=== PATIENT | male | born 1965 | race Caucasian/White ===

== ENCOUNTER 2016-11-01 21:35 | Emergency (ER) | payer MEDICARE, OTHER ==
[2016-11-01 21:43] VITALS: BP 158/82
--- NOTE | 2016-11-01 21:48 | UC ---
Respiratory Complaint HPI - HPI Summary HPI Summary: The patient comes in today for: 1. Sinus pressure: Onset: "a couple days." Palliative/Provocative: Staying out of the cold helps. Quality: Pressure. Region: Frontal and maxillary sinuses Severity: 3/10 Time: Constant. Associated symptoms: Rhinitis: "Not much out." Cough: None. Fever: None. Upper tooth pain: None. * - History of Current Complaint Stated Complaint: LEFT EAR, SINUSES Time Seen by Provider: 11/01/16 21:36 Hx Obtained From: Patient - Allergies/Home Medications Allergies/Adverse Reactions: Allergies Allergy/AdvReac Type Severity Reaction Status Date / Time No Known Allergies Allergy Verified 11/01/16 21:43 PMH/Surg Hx/FS Hx/Imm Hx Previously Healthy: No - Back pain. Endocrine History Of: Reports: Dyslipidemia Denies: Diabetes, Thyroid Disease, Hyperthyroidism, Hypothyroidism Cardiovascular History Of: Reports: Cardiac Disorders - pace maker/difbrillator after "Massive heart attack.", Hypertension, Pacemaker/ICD, Myocardial Infarction Denies: Congestive Heart Failure, Atrial Fibrillation, Deep Vein Thrombosis, Bleeding Disorders Respiratory History Of: Denies: COPD, Asthma, Bronchitis, Pneumonia, Pulmonary Embolism GI/ History Of: Reports: Gastroesophageal Reflux Denies: Ulcer, Gastrointestinal Bleed, Gall Bladder Disease, Kidney Stones, Diverticulitis, Renal Disease, Urosepsis Neurological History Of: Denies: TIA, CVA, Dementia, Seizures, Migraine Psychological History Of: Denies: Anxiety, Depression, Bipolar Disorder, Schizophrenia, Post Traumatic Stress Disorder Cancer History Of: Denies: Lung Cancer, Colorectal Cancer, Breast Cancer, Prostate Cancer, Cervical Cancer Other History Of: Anticoagulant Therapy - 325 mg aspirin daily. Negative For: HIV, Hepatitis B, Hepatitis C - Surgical History Surgical History: Yes Surgery Procedure, Year, and Place: steel rods in back and neCK. PACE MAKER PLACED 2006. REPLACEMENT PACER--09/2014 - Social History Alcohol Use: Rare Substance Use Type: None Smoking Status (MU): Former Smoker Type: Cigarettes Length of Time of Smoking/Using Tobacco: 2 YEARS Have You Smoked in the Last Year: No When Did the Patient Quit Smoking/Using Tobacco: 2011 - Immunization History Most Recent Influenza Vaccination: FALL 2014 Review of Systems Constitutional: Negative Skin: Negative Eyes: Negative ENT: Negative Respiratory: Negative Cardiovascular: Negative Gastrointestinal: Negative All Other Systems Reviewed And Are Negative: Yes Physical Exam Triage Information Reviewed: Yes Appearance: Well-Appearing, No Pain Distress, Well-Nourished Vital Signs Reviewed: Yes Eyes: Positive: Conjunctiva Clear, Discharge ENT: Positive: Hearing grossly normal. Negative: Nasal congestion, Nasal drainage - Right ear: TM katz and translucent with no canal erythema. Left ear: Cerumen impaction:, Tonsillar swelling, Tonsillar exudate Dental: Negative: Gross Decay/Caries @, Dental Fracture @ Neck: Positive: Supple, Nontender, No Lymphadenopathy. Negative: Nuchal Rigidity Respiratory: Positive: Chest non-tender, Lungs clear, No respiratory distress, No accessory muscle use. Negative: Crackles, Stridor, Wheezing Cardiovascular: Positive: RRR, No Murmur Abdomen Description: Positive: Nontender, No Organomegaly, Soft. Negative: Distended, Guarding Musculoskeletal: Positive: Strength Intact, ROM Intact, No Edema Neurological: Positive: Alert, Muscle Tone Normal Psychological: Positive: Age Appropriate Behavior, Consolable Skin: Negative: rashes, breakdown Respiratory Course/Dx - Differential Dx/Diagnosis Differential Diagnosis/HQI/PQRI: Asthma, Bronchitis, Laryngitis, Sinusitis Provider Diagnoses: Sinusitis Discharge - Discharge Plan Condition: Stable Disposition: HOME Patient Education Materials: Sinusitis (ED) Referrals: Jigar Garcia MD [Primary Care Provider] - 1 Week
[2016-11-01] MEDS ORDERED: Amoxicillin/Clavulanate TAB* 875 MG PO ONE (21:54)
== END 2016-11-01 22:02 | disposition home or self-care (01) ==
LOC: UCCORT 21:35
DX: J32.9 Chronic sinusitis, unspecified (principal); Z95.0 Presence of cardiac pacemaker; Z87.891 Personal history of nicotine dependence
CPT/HCPCS: 99212; A9270-GY; G0463

== ENCOUNTER 2017-07-17 09:19 | Emergency (ER) | payer MEDICARE, OTHER ==
--- NOTE | 2017-07-17 09:33 | UC ---
Throat Pain/Nasal Hubert HPI - HPI Summary HPI Summary: nasal congestion and pressure for three days. hot showers have not helped. no fever. - History of Current Complaint Stated Complaint: SINUS Time Seen by Provider: 07/17/17 09:26 Hx Obtained From: Patient Onset/Duration: Gradual Onset Severity: Moderate Cough: Nonproductive Associated Signs & Symptoms: Positive: Sinus Discomfort, Nasal Discharge. Negative: Hoarseness, Fever, Vomiting, Rash - Epiglottits Risk Factors Epiglottis Risk Factors: Negative - Allergies/Home Medications Allergies/Adverse Reactions: Allergies Allergy/AdvReac Type Severity Reaction Status Date / Time No Known Allergies Allergy Verified 11/01/16 21:43 PMH/Surg Hx/FS Hx/Imm Hx Previously Healthy: No - heart disease. Other History Of: Anticoagulant Therapy - 325 mg aspirin daily. Negative For: HIV, Hepatitis B, Hepatitis C - Surgical History Surgical History: Yes Surgery Procedure, Year, and Place: steel rods in back and neCK. PACE MAKER PLACED 2006. REPLACEMENT PACER--09/2014 - Family History Known Family History: Positive: Other - no related sinus disease. - Social History Alcohol Use: Rare Substance Use Type: None Smoking Status (MU): Former Smoker Type: Cigarettes Amount Used/How Often: 1-2 ppd Length of Time of Smoking/Using Tobacco: 2 YEARS Have You Smoked in the Last Year: No When Did the Patient Quit Smoking/Using Tobacco: 2011 - Immunization History Most Recent Influenza Vaccination: FALL 2014 Review of Systems ENT: Nasal Discharge, Sinus Congestion, Sinus Pain/Tenderness All Other Systems Reviewed And Are Negative: Yes Physical Exam Triage Information Reviewed: Yes Appearance: Well-Appearing, No Pain Distress, Well-Nourished Vital Signs Reviewed: Yes Eye Exam: Normal ENT Exam: Other - devora sinus tenderness mild. ENT: Positive: Pharynx normal, Nasal congestion, TMs normal. Negative: Pharyngeal erythema, Nasal drainage, Tonsillar swelling, Tonsillar exudate, Trismus Neck exam: Normal Neck: Positive: Supple, Nontender, No Lymphadenopathy Respiratory Exam: Normal Cardiovascular Exam: Normal Abdominal Exam: Normal Musculoskeletal Exam: Normal Neurological Exam: Normal Psychological Exam: Normal Skin Exam: Normal Throat Pain/Nasal Course/Dx - Differential Dx/Diagnosis Differential Diagnosis/HQI/PQRI: Influenza, Laryngitis, Mononucleosis, Otitis Media, Peritonsillar Abscess, Pharyngitis, Tonsillitis, URI Provider Diagnoses: uri. sinusitis. Discharge - Discharge Plan Condition: Good Disposition: HOME Prescriptions: Amoxicillin PO (*) [Amoxicillin 500 MG CAP*] 500 mg PO TID #30 cap Patient Education Materials: Rhinosinusitis (ED), Upper Respiratory Infection ( ED) Referrals: Jigar Garcia MD [Primary Care Provider] - If Needed
[2017-07-17 09:42] VITALS: BP 118/76
== END 2017-07-17 09:50 | disposition home or self-care (01) ==
LOC: UCCORT 09:19
DX: J06.9 Acute upper respiratory infection, unspecified (principal); J32.9 Chronic sinusitis, unspecified; Z95.0 Presence of cardiac pacemaker; Z79.82 Long term (current) use of aspirin; Z87.891 Personal history of nicotine dependence
CPT/HCPCS: 99212; G0463

== ENCOUNTER 2017-12-31 21:10 | Emergency (ER) | payer MEDICARE, OTHER ==
[2017-12-31 21:24] VITALS: BP 133/83
--- NOTE | 2017-12-31 21:40 | ED ---
Throat Pain/Nasal Congestion - HPI Summary HPI Summary: Sinus pressure nad pain and mild sore throat and PND for 2 days. Mild cough. No fever. Tried increased fluids. Pos for ill contacts. No blood in nasal mucus. no tob exposure. - History of Current Complaint Chief Complaint: UCGeneralIllness Time Seen by Provider: 12/31/17 21:15 Hx Obtained From: Patient Onset/Duration: Gradual Onset Severity: Moderate Associated Signs And Symptoms: Positive: Sinus Discomfort, Nasal Discharge Cough: Nonproductive Related History: Smoking - ex smoker. - Epiglottits Risk Factors Epiglottis Risk Factors: Negative - Allergies/Home Medications Allergies/Adverse Reactions: Allergies Allergy/AdvReac Type Severity Reaction Status Date / Time No Known Allergies Allergy Verified 12/31/17 21:24 PMH/Surg Hx/FS Hx/Imm Hx Endocrine/Hematology History: Reports: Hx Anticoagulant Therapy - 325 mg aspirin daily. Denies: Hx Diabetes, Hx Thyroid Disease Cardiovascular History: Reports: Hx Hypertension, Hx Myocardial Infarction, Hx Pacemaker/ICD Denies: Hx Congestive Heart Failure, Hx Deep Vein Thrombosis Respiratory History: Denies: Hx Asthma, Hx Chronic Obstructive Pulmonary Disease (COPD), Hx Lung Cancer, Hx Pneumonia, Hx Pulmonary Embolism GI History: Denies: Hx Gall Bladder Disease, Hx Gastrointestinal Bleed, Hx Ulcer, Hx Urosepsis History: Denies: Hx Kidney Stones, Hx Renal Disease EENT History: Reports: Other - History of sinusitis. Neurological History: Denies: Hx Dementia, Hx Migraine, Hx Seizures, Hx Transient Ischemic Attacks (TIA) Psychiatric History: Denies: Hx Anxiety, Hx Depression, Hx Schizophrenia, Hx Bipolar Disorder - Surgical History Surgery Procedure, Year, and Place: steel rods in back and neCK. PACE MAKER PLACED 2006. REPLACEMENT PACER--09/2014 Infectious Disease History: No Infectious Disease History: Denies: History Other Infectious Disease, Traveled Outside the [place] in Last 30 Days - Family History Known Family History: Positive: Other - no related sinus disease. - Social History Alcohol Use: None Substance Use Type: Reports: None Smoking Status (MU): Former Smoker Type: Cigarettes Amount Used/How Often: 1-2 ppd Length of Time of Smoking/Using Tobacco: 2 YEARS Have You Smoked in the Last Year: No Review of Systems Constitutional: Negative Negative: Fever, Chills Eyes: Negative Positive: Dental Pain, Sore Throat, Nasal Discharge, Other - PND Cardiovascular: Negative Negative: Palpitations, Chest Pain Positive: Cough Gastrointestinal: Negative Genitourinary: Negative Musculoskeletal: Negative Skin: Negative Neurological: Negative Psychological: Normal All Other Systems Reviewed And Are Negative: Yes Physical Exam Triage Information Reviewed: Yes Vital Signs On Initial Exam: Initial Vitals Temp Pulse Resp BP Pulse Ox 98.8 F 78 18 133/83 100 12/31/17 21:20 12/31/17 21:20 12/31/17 21:20 12/31/17 21:20 12/31/17 21:20 Vital Signs Reviewed: Yes Appearance: Positive: Well-Appearing, No Pain Distress Skin: Positive: Warm Head/Face: Positive: Normal Head/Face Inspection Eyes: Positive: Normal ENT: Positive: Pharyngeal erythema, Nasal congestion, Sinus tenderness Neck: Positive: Supple, No Lymphadenopathy Respiratory/Lung Sounds: Positive: Clear to Auscultation Cardiovascular: Positive: RRR, Murmur, Tachycardia Abdomen Description: Positive: Nontender, No Organomegaly Bowel Sounds: Positive: Present Musculoskeletal: Positive: Normal Neurological: Positive: Normal Psychiatric: Positive: Normal AVPU Assessment: Alert - [place] Coma Scale Best Eye Response: 4 - Spontaneous Best Motor Response: 6 - Obeys Commands Best Verbal Response: 5 - Oriented Coma Scale Total: 15 Diagnostics - Vital Signs Vital Signs Temp Pulse Resp BP Pulse Ox 12/31/17 21:20 98.8 F 78 18 133/83 100 - Laboratory Lab Results: Flu test was negative. Lab Statement: Any lab studies that have been ordered have been reviewed, and results considered in the medical decision making process. EENT Course/Dx - Differential Diagnoses Differential Diagnoses: Influenza, Sinusitis, URI/Bronchitis - Diagnoses Provider Diagnoses: Sinusitis, acute Discharge - Discharge Plan Condition: Stable Disposition: HOME Prescriptions: DOXYcycline CAP(*) [DOXYcycline 100MG CAP(*)] 100 mg PO BID 10 Days #20 cap Patient Education Materials: Rhinosinusitis (ED) Print Language: AZERI Referrals: Jigar Garcia MD [Primary Care Provider] - Additional Instructions: May use Mucinex , 1 tab bid. run a humidifier. Continue increased fluids.
[2017-12-31] MEDS ORDERED: DOXYcycline CAP(*) 100 MG PO ONE (22:03)
== END 2017-12-31 22:09 | disposition home or self-care (01) ==
LOC: UCCORT 21:10
DX: J11.1 Influenza due to unidentified influenza virus with other respiratory manifestations (principal); J32.9 Chronic sinusitis, unspecified; J06.9 Acute upper respiratory infection, unspecified; J40 Bronchitis, not specified as acute or chronic; Z87.891 Personal history of nicotine dependence
CPT/HCPCS: 87502; 99212; A9270-GY; G0463

== ENCOUNTER 2019-10-25 07:50 | Emergency (ER) | payer MEDICARE, OTHER ==
[2019-10-25 08:07] VITALS: BP 130/76
--- NOTE | 2019-10-25 08:13 | UC ---
Respiratory Complaint HPI - HPI Summary HPI Summary: 54 year old male with history of heart disease and recurrent sinusitis with history of sinus surgery presents with concern for sinus infection. Symptoms started 3 days ago and worsening despite using nasnoex and allergy meds. Has had headahce as well . No teeth pain but has dentures. No fever. He gets this every 3-4 months he staets and needs to go back to his ENT. Has PCP appt in 6 days. Bending over worsens Sx and nothing improves Sx - History of Current Complaint Chief Complaint: UCGeneralIllness Stated Complaint: SINUS PRESSURE Time Seen by Provider: 10/25/19 08:08 Hx Obtained From: Patient Onset/Duration: Gradual Onset Timing: Constant Severity Initially: Mild Severity Currently: Moderate Pain Intensity: 5 Character: Cough: Productive Aggravating Factors: Recumbent Position Alleviating Factors: Nothing Associated Signs And Symptoms: Positive: Nasal Congestion, Sinus Discomfort - Allergies/Home Medications Allergies/Adverse Reactions: Allergies Allergy/AdvReac Type Severity Reaction Status Date / Time No Known Allergies Allergy Verified 10/25/19 08:03 Home Medications: Home Medications Acetaminophen [Tylenol Extra Strength] 1,000 mg PO ONCE PRN 10/25/19 [History Confirmed 10/25/19] PMH/Surg Hx/FS Hx/Imm Hx Previously Healthy: Yes Endocrine History: Dyslipidemia Cardiovascular History: Cardiac Disease, Hypertension, Pacemaker/ICD Other History Of: Anticoagulant Therapy - 325 mg aspirin daily. Negative For: HIV, Hepatitis B, Hepatitis C - Surgical History Surgical History: Yes Surgery Procedure, Year, and Place: steel rods in back and neCK. PACE MAKER PLACED 2006. REPLACEMENT PACER--09/2014 - Family History Known Family History: Positive: Hypertension, Other - no related sinus disease. - Social History Alcohol Use: Rare Substance Use Type: None Smoking Status (MU): Former Smoker Type: Cigarettes Amount Used/How Often: 1-2 ppd Length of Time of Smoking/Using Tobacco: 2 YEARS Have You Smoked in the Last Year: No When Did the Patient Quit Smoking/Using Tobacco: 2011 - Immunization History Most Recent Influenza Vaccination: FALL 2014 Review of Systems All Other Systems Reviewed And Are Negative: Yes Constitutional: Positive: Fatigue ENT: Positive: Nasal Discharge, Sinus Congestion, Sinus Pain/Tenderness Respiratory: Positive: Cough Is Patient Immunocompromised?: No Physical Exam Triage Information Reviewed: Yes Appearance: Well-Appearing, No Pain Distress, Well-Nourished Vital Signs: Initial Vital Signs Temp 98.9 F 10/25/19 08:03 Pulse 90 10/25/19 08:03 Resp 18 10/25/19 08:03 BP 130/76 10/25/19 08:03 Pulse Ox 100 10/25/19 08:03 Vital Signs Reviewed: Yes Eye Exam: Normal ENT Exam: Normal ENT: Positive: Nasal congestion, Nasal drainage, Sinus tenderness Dental Exam: Normal Neck exam: Normal Respiratory Exam: Normal Cardiovascular Exam: Normal Musculoskeletal Exam: Normal Neurological Exam: Normal Psychological Exam: Normal Skin Exam: Normal Respiratory Course/Dx - Course Course Of Treatment: Appears viral at this time. Cont supportive care for another 4-5 days and if sx worsen can start abx. He is anxious due to his history of sinus infections and heart disease and asking to have Abx available in case he worsens. I will offer meds he is aware of SE of meds and willing to accept those. If Sx worsen go to ED. advise to f/u with PCP. - Differential Dx/Diagnosis Differential Diagnosis/HQI/PQRI: Bronchitis, Lower Resp Infection, Sinusitis Provider Diagnosis: Sinusitis Discharge ED - Sign-Out/Discharge Documenting (check all that apply): Patient Departure All imaging exams completed and their final reports reviewed: No Studies - Discharge Plan Condition: Good Disposition: HOME Prescriptions: Amoxicillin/Clavulanate TAB* [Augmentin TAB 875*] 875 mg PO BID #14 tab Patient Education Materials: Sinusitis (ED) Referrals: Jigar Garcia MD [Primary Care Provider] - 6 Days Additional Instructions: As we discussed your symptoms appear to be viral in nature. Continue your current regimen and if your symptoms persist or worsen over the next 4-5 days then at that time start the antibiotics and please keep your office visit with your PCP on 10/31/19 - Billing Disposition and Condition Condition: GOOD Disposition: Home
== END 2019-10-25 08:30 | disposition home or self-care (01) ==
LOC: UCCORT 07:50
DX: J32.9 Chronic sinusitis, unspecified (principal); I10 Essential (primary) hypertension; Z79.82 Long term (current) use of aspirin; Z87.891 Personal history of nicotine dependence; Z95.0 Presence of cardiac pacemaker
CPT/HCPCS: 99212; G0463